=== PATIENT | female | born 1960 | race Caucasian/White ===

== ENCOUNTER 2021-12-14 19:13 | Inpatient (IN) | payer OTHER ==
[2021-12-14 19:39] VITALS: BMI 28.5
[2021-12-14] MEDS ORDERED: SODIUM CHLORIDE 2,123 ML IV ONE (20:26)
[2021-12-14] MEDS ORDERED: ACETAMINOPHEN 1000 MG/100 ML BAG IVPB ONE (20:27)
[2021-12-14] MEDS ORDERED: ACETAMINOPHEN INJECTION 100 ML IVPB ONE (20:42)
[2021-12-14 21:27] LABS: VENOUS BASE EXCESS -0.6 mmol/L (-2-2); VENOUS O2 SATURATION 94.8 % (70-80); VENOUS PCO2 36.1 mmHg (38-52); VENOUS PH 7.428 (7.310-7.410)
[2021-12-14 21:41] LABS: BASO % 0.1 % (0-2.0); EOS % 0.2 % (0-4.5); HEMATOCRIT 38.6 % (32.4-45.2); MCH 28.6 pg (25.7-33.7); MCHC 33.7 g/dl (32.0-36.0); MEAN CELL VOLUME 84.9 fl (80-96); MEAN PLT VOLUME 9.2 fl (7.5-11.1); MONO % 4.9 % (3.8-10.2); NEUT % 85.8 % (42.8-82.8); PLATELET COUNT 234 10^3/uL (134-434); RBC 4.55 M/mm3 (3.60-5.2); RDW 14.3 % (11.6-15.6); WHITE BLOOD COUNT 13.6 K/mm3 (4.0-10.0)
[2021-12-14 21:46] LABS: URINE APPEARANCE CLEAR; URINE BILIRUBIN NEGATIVE (NEGATIVE); URINE COLOR YELLOW; URINE GLUCOSE (UA) NEGATIVE (NEGATIVE); URINE KETONE NEGATIVE (NEGATIVE); URINE LEUK ESTERASE NEGATIVE (NEGATIVE); URINE NITRITE NEGATIVE (NEGATIVE); URINE PROTEIN NEGATIVE (NEGATIVE); URINE UROBILINOGEN 0.2 mg/dL (0.2-1.0)
[2021-12-14 22:16] LABS: LACTIC ACID 2.3 mmol/L (0.4-2.0)
[2021-12-14 22:21] LABS: INR 1.03 (0.83-1.09); PROTHROMBIN TIME (PATIENT) 11.8 SEC (9.7-13.0)
[2021-12-14 22:23] LABS: ACTIVATED PTT 27.3 SECONDS (25.2-36.5)
[2021-12-14 22:47] LABS: CHLORIDE 104 mmol/L (98-107); SODIUM 137 mmol/L (136-145)
[2021-12-14 22:49] LABS: ANION GAP 9 MMOL/L (8-16); BLOOD UREA NITROGEN 12.3 mg/dL (7-18); CALCIUM 8.9 mg/dL (8.5-10.1); CO2 25 mmol/L (21-32); GLUCOSE,RANDOM 139 mg/dL (74-106)
[2021-12-14 22:50] LABS: ALBUMIN 3.7 g/dl (3.4-5.0)
[2021-12-14 22:52] LABS: CREATININE 0.8 mg/dL (0.55-1.3)
[2021-12-14 22:53] LABS: SGOT/AST 31 U/L (15-37); SGPT/ALT 31 U/L (13-61)
[2021-12-14 22:54] LABS: BILIRUBIN,TOTAL 0.5 mg/dL (0.2-1); TOT PROT 7.5 g/dl (6.4-8.2)
[2021-12-14 22:55] LABS: ALK PHOS 94 U/L (45-117)
[2021-12-15 01:01] LABS: LACTIC ACID 2.4 mmol/L (0.4-2.0)
[2021-12-15] MEDS ORDERED: PIPERACILLIN/TAZOB 4.5 GM 4.5 GM in DEXTROSE 5%-WATER 100 ML IVPB ONE (03:06)
[2021-12-15] MEDS ORDERED: VANCOMYCIN 1,000 MG in DEXTROSE 5%-WATER - 250 ML IVPB ONE (03:06)
[2021-12-15] MEDS ORDERED: VANCOMYCIN/WATER FOR INJ (PEG) 1,000 MG/200 ML BAG IVPB ONE (03:13)
[2021-12-15] MEDS ORDERED: PIPERACILLIN/TAZOB 4.5 GM 4.5 GM/100 ML BAG IVPB ONE ×2 (03:13→17:34)
[2021-12-15] MEDS ORDERED: ACETAMINOPHEN 1000 MG/100 ML BAG IVPB ONE (05:06)
[2021-12-15] MEDS ORDERED: ACETAMINOPHEN 325 MG TABLET (FP) PO PRN (07:47)
[2021-12-15] MEDS ORDERED: SODIUM CHLORIDE 1,000 ML IV SCH (08:00)
[2021-12-15] MEDS ORDERED: VANCOMYCIN 1,000 MG in DEXTROSE 5%-WATER - 250 ML IVPB SCH (08:00)
[2021-12-15] MEDS ORDERED: PIPERACILLIN/TAZOB 3.375 GM 3.375 GM in DEXTROSE 5%-WATER - 50 ML IVPB SCH (10:00)
[2021-12-15] MEDS ORDERED: ENOXAPARIN NA (PORCINE) 40 MG/0.4 ML DISP.SYRIN SQ ONE (10:30)
[2021-12-15] MEDS ORDERED: PIPERACILLIN/TAZOB 3.375 GM 3.375 GM/50 ML BAG IVPB ONE (10:31)
[2021-12-15] MEDS: ENOXAPARIN NA (PORCINE) 40 MG/0.4 ML DISP.SYRIN SQ SCH (10:46)
[2021-12-15] MEDS: INSULIN SLIDING SCALE (NOVOLOG) 1 VIAL SQ SCH ×3 (10:47→23:24)
[2021-12-15] MEDS: PIPERACILLIN/TAZOB 4.5 GM 4.5 GM in DEXTROSE 5%-WATER 100 ML IVPB SCH (17:50)
[2021-12-15] MEDS ORDERED: PIPERACILLIN/TAZOB 4.5 GM 4.5 GM in DEXTROSE 5%-WATER 100 ML IVPB SCH (18:00)
[2021-12-15] MEDS ORDERED: VANCOMYCIN 500 MG in DEXTROSE 5%-WATER - 250 ML IVPB SCH (20:00)
[2021-12-15] MEDS ORDERED: VANCOMYCIN/WATER FOR INJ (PEG) 1,000 MG/200 ML BAG IVPB SCH (20:00)
[2021-12-16] MEDS ORDERED: PIPERACILLIN/TAZOB 4.5 GM 4.5 GM/100 ML BAG IVPB ONE ×2 (02:44→07:39)
[2021-12-16] MEDS: PIPERACILLIN/TAZOB 4.5 GM 4.5 GM in DEXTROSE 5%-WATER 100 ML IVPB SCH ×2 (03:08→09:25)
[2021-12-16] MEDS ORDERED: ACETAMINOPHEN 325 MG TABLET (FP) ONE (06:04)
[2021-12-16 07:25] LABS: BASO % 0.3 % (0-2.0); EOS % 0.8 % (0-4.5); HEMATOCRIT 32.7 % (32.4-45.2); HEMOGLOBIN 11.3 GM/dL (10.7-15.3); LYMPH % 22.5 % (8-40); MCH 29.2 pg (25.7-33.7); MCHC 34.5 g/dl (32.0-36.0); MEAN CELL VOLUME 84.8 fl (80-96); NEUT % 68.4 % (42.8-82.8); PLATELET COUNT 204 10^3/uL (134-434); RBC 3.86 M/mm3 (3.60-5.2); RDW 14.2 % (11.6-15.6); WHITE BLOOD COUNT 9.1 K/mm3 (4.0-10.0)
[2021-12-16 07:34] LABS: INR 1.11 (0.83-1.09); PROTHROMBIN TIME (PATIENT) 12.8 SEC (9.7-13.0)
[2021-12-16 07:35] LABS: ACTIVATED PTT 27.4 SECONDS (25.2-36.5)
[2021-12-16] MEDS ORDERED: ENOXAPARIN NA (PORCINE) 40 MG/0.4 ML DISP.SYRIN SQ ONE (07:40)
[2021-12-16 07:46] LABS: CALCIUM 8.7 mg/dL (8.5-10.1)
[2021-12-16 07:47] LABS: ALBUMIN 3.5 g/dl (3.4-5.0); BLOOD UREA NITROGEN 10.7 mg/dL (7-18)
[2021-12-16 07:49] LABS: CREATININE 0.8 mg/dL (0.55-1.3); PHOSPHOROUS 3.5 mg/dL (2.5-4.9)
[2021-12-16 07:51] LABS: BILIRUBIN,TOTAL 0.6 mg/dL (0.2-1)
[2021-12-16] MEDS: INSULIN SLIDING SCALE (NOVOLOG) 1 VIAL SQ SCH ×4 (07:53→22:16)
[2021-12-16] MEDS ORDERED: VANCOMYCIN 1,000 MG in DEXTROSE 5%-WATER - 250 ML IVPB SCH (08:00)
[2021-12-16] MEDS: ENOXAPARIN NA (PORCINE) 40 MG/0.4 ML DISP.SYRIN SQ SCH (09:24)
[2021-12-16] MEDS ORDERED: PIPERACILLIN/TAZOB 3.375 GM 3.375 GM in DEXTROSE 5%-WATER - 50 ML IVPB SCH (13:45)
[2021-12-16] MEDS: PIPERACILLIN/TAZOB 3.375 GM 3.375 GM in DEXTROSE 5%-WATER - 50 ML IVPB SCH (16:52)
[2021-12-16] MEDS ORDERED: PIPERACILLIN/TAZOB 3.375 GM 3.375 GM/50 ML BAG IVPB ONE (16:55)
[2021-12-17] MEDS: PIPERACILLIN/TAZOB 3.375 GM 3.375 GM in DEXTROSE 5%-WATER - 50 ML IVPB SCH ×3 (02:23→18:13)
[2021-12-17] MEDS: INSULIN SLIDING SCALE (NOVOLOG) 1 VIAL SQ SCH ×4 (06:05→21:46)
[2021-12-17] MEDS: ENOXAPARIN NA (PORCINE) 40 MG/0.4 ML DISP.SYRIN SQ SCH (09:42)
[2021-12-17] MEDS: LISINOPRIL 10 MG TABLET PO SCH ×2 (10:50→21:47)
[2021-12-18] MEDS ORDERED: PIPERACILLIN/TAZOBACTAM 3.375 GM VIAL IVPB ONE (01:38)
[2021-12-18] MEDS: PIPERACILLIN/TAZOB 3.375 GM 3.375 GM in DEXTROSE 5%-WATER - 50 ML IVPB SCH (02:10)
[2021-12-18] MEDS: INSULIN SLIDING SCALE (NOVOLOG) 1 VIAL SQ SCH ×4 (06:23→21:40)
[2021-12-18 09:06] LABS: BASO % 0.4 % (0-2.0); EOS % 2.7 % (0-4.5); HEMATOCRIT 38.2 % (32.4-45.2); HEMOGLOBIN 12.6 GM/dL (10.7-15.3); LYMPH % 41.6 % (8-40); MCHC 32.8 g/dl (32.0-36.0); MEAN CELL VOLUME 85.1 fl (80-96); MEAN PLT VOLUME 8.8 fl (7.5-11.1); MONO % 11.8 % (3.8-10.2); NEUT % 43.5 % (42.8-82.8); PLATELET COUNT 268 10^3/uL (134-434); RBC 4.49 M/mm3 (3.60-5.2); RDW 14.6 % (11.6-15.6); WHITE BLOOD COUNT 6.8 K/mm3 (4.0-10.0)
[2021-12-18 09:25] LABS: BLOOD UREA NITROGEN 17.6 mg/dL (7-18); CALCIUM 9.9 mg/dL (8.5-10.1)
[2021-12-18 09:29] LABS: CREATININE 0.9 mg/dL (0.55-1.3)
[2021-12-18] MEDS ORDERED: CEFTRIAXONE 1 GM in DEXTROSE 5%-WATER - 50 ML IVPB SCH (10:00)
[2021-12-18] MEDS: LISINOPRIL 10 MG TABLET PO SCH ×2 (10:07→21:34)
[2021-12-18] MEDS: ENOXAPARIN NA (PORCINE) 40 MG/0.4 ML DISP.SYRIN SQ SCH (10:07)
[2021-12-18] MEDS ORDERED: diphenhydrAMINE HCL 25 MG CAPSULE (FP) PO ONE (16:59)
[2021-12-18] MEDS ORDERED: PIPERACILLIN/TAZOB 3.375 GM 3.375 GM in DEXTROSE 5%-WATER - 50 ML IVPB SCH (18:00)
[2021-12-18] MEDS: ATORVASTATIN CA 40 MG TABLET (FP) PO SCH (21:34)
[2021-12-19] MEDS: INSULIN SLIDING SCALE (NOVOLOG) 1 VIAL SQ SCH ×4 (06:36→21:35)
[2021-12-19] MEDS ORDERED: diphenhydrAMINE HCL 25 MG CAPSULE (FP) PO PRN (07:42)
[2021-12-19 08:44] LABS: CALCIUM 9.8 mg/dL (8.5-10.1)
[2021-12-19 08:45] LABS: BLOOD UREA NITROGEN 19.9 mg/dL (7-18)
[2021-12-19 08:47] LABS: CREATININE 0.9 mg/dL (0.55-1.3)
[2021-12-19 09:01] LABS: BASO % 0.4 % (0-2.0); HEMATOCRIT 38.9 % (32.4-45.2); HEMOGLOBIN 12.8 GM/dL (10.7-15.3); LYMPH % 42.2 % (8-40); MCH 28.1 pg (25.7-33.7); MCHC 32.8 g/dl (32.0-36.0); MEAN CELL VOLUME 85.6 fl (80-96); MEAN PLT VOLUME 9.2 fl (7.5-11.1); MONO % 10.4 % (3.8-10.2); PLATELET COUNT 288 10^3/uL (134-434); RBC 4.55 M/mm3 (3.60-5.2); RDW 14.2 % (11.6-15.6); WHITE BLOOD COUNT 6.2 K/mm3 (4.0-10.0)
[2021-12-19] MEDS ORDERED: PIPERACILLIN/TAZOB 3.375 GM 3.375 GM in DEXTROSE 5%-WATER - 50 ML IVPB SCH (10:00)
[2021-12-19] MEDS: AZTREONAM 1 GM in DEXTROSE 5%-WATER - 50 ML IVPB SCH ×2 (10:08→17:24)
[2021-12-19] MEDS: ENOXAPARIN NA (PORCINE) 40 MG/0.4 ML DISP.SYRIN SQ SCH (10:08)
[2021-12-19] MEDS: ASPIRIN COATED 81 MG TABLET.EC PO SCH (10:09)
[2021-12-19] MEDS: LISINOPRIL 10 MG TABLET PO SCH ×2 (10:09→21:30)
[2021-12-19] MEDS: ATORVASTATIN CA 40 MG TABLET (FP) PO SCH (21:30)
[2021-12-19] MEDS ORDERED: INSULIN (NOVOLOG) ASPART 100 UNITS/ML 10ML VIAL ONE (21:37)
[2021-12-20] MEDS: AZTREONAM 1 GM in DEXTROSE 5%-WATER - 50 ML IVPB SCH ×3 (02:07→17:51)
[2021-12-20] MEDS ORDERED: INSULIN (NOVOLOG) ASPART 100 UNITS/ML 10ML VIAL ONE ×2 (06:36→16:25)
[2021-12-20] MEDS: INSULIN SLIDING SCALE (NOVOLOG) 1 VIAL SQ SCH ×4 (06:41→22:43)
[2021-12-20] MEDS: ASPIRIN COATED 81 MG TABLET.EC PO SCH (09:35)
[2021-12-20] MEDS: LISINOPRIL 10 MG TABLET PO SCH ×2 (09:35→22:43)
[2021-12-20 12:24] LABS: BASO % 0.6 % (0-2.0); HEMATOCRIT 36.6 % (32.4-45.2); HEMOGLOBIN 12.4 GM/dL (10.7-15.3); LYMPH % 37.7 % (8-40); MCH 28.8 pg (25.7-33.7); MCHC 33.7 g/dl (32.0-36.0); MEAN CELL VOLUME 85.5 fl (80-96); MEAN PLT VOLUME 8.7 fl (7.5-11.1); MONO % 7.7 % (3.8-10.2); PLATELET COUNT 276 10^3/uL (134-434); RBC 4.28 M/mm3 (3.60-5.2); RDW 14.2 % (11.6-15.6); WHITE BLOOD COUNT 5.4 K/mm3 (4.0-10.0)
[2021-12-20 14:30] LABS: BLOOD UREA NITROGEN 17.4 mg/dL (7-18); CALCIUM 9.2 mg/dL (8.5-10.1)
[2021-12-20 14:34] LABS: CREATININE 0.8 mg/dL (0.55-1.3)
[2021-12-20] MEDS: ATORVASTATIN CA 40 MG TABLET (FP) PO SCH (22:43)
[2021-12-21] MEDS: AZTREONAM 1 GM in DEXTROSE 5%-WATER - 50 ML IVPB SCH (02:41)
[2021-12-21] MEDS: INSULIN SLIDING SCALE (NOVOLOG) 1 VIAL SQ SCH ×2 (06:51→13:23)
[2021-12-21] MEDS ORDERED: ENOXAPARIN NA (PORCINE) 40 MG/0.4 ML DISP.SYRIN SQ SCH (10:00)
[2021-12-21] MEDS ORDERED: SULFAMETHOXAZOLE/TRIMETHOPRIM 800MG/160MG D.S. TABLET PO SCH (10:00)
[2021-12-21] MEDS: LISINOPRIL 10 MG TABLET PO SCH (10:16)
[2021-12-21] MEDS: ASPIRIN COATED 81 MG TABLET.EC PO SCH (10:16)
[2021-12-21 10:18] LABS: BASO % 0.5 % (0-2.0); EOS % 2.6 % (0-4.5); HEMOGLOBIN 12.3 GM/dL (10.7-15.3); LYMPH % 39.2 % (8-40); MCH 29.3 pg (25.7-33.7); MCHC 34.3 g/dl (32.0-36.0); MEAN CELL VOLUME 85.3 fl (80-96); MEAN PLT VOLUME 8.5 fl (7.5-11.1); MONO % 7.5 % (3.8-10.2); NEUT % 50.2 % (42.8-82.8); PLATELET COUNT 289 10^3/uL (134-434); RBC 4.22 M/mm3 (3.60-5.2); RDW 14.3 % (11.6-15.6); WHITE BLOOD COUNT 6.5 K/mm3 (4.0-10.0)
[2021-12-21 11:17] LABS: CALCIUM 9.6 mg/dL (8.5-10.1)
[2021-12-21 11:18] LABS: BLOOD UREA NITROGEN 21.4 mg/dL (7-18)
[2021-12-21 11:22] LABS: CREATININE 0.8 mg/dL (0.55-1.3)
[2021-12-21 14:17] VITALS: BP 128/63; PULSE 78; RESP 18; TEMP 99
== END 2021-12-21 16:33 | disposition home or self-care (01) | DRG 720 ==
LOC: JER 19:13 → JERBED 12-15 03:08 → J8W 12-16 18:09
PROVIDERS: ADMIT Internal Medicine; ATTEND Internal Medicine
DX: A41.51 Sepsis due to Escherichia coli [E. coli] (principal); E87.2 Acidosis; J84.10 Pulmonary fibrosis, unspecified; E11.9 Type 2 diabetes mellitus without complications; E78.5 Hyperlipidemia, unspecified; I10 Essential (primary) hypertension; N39.0 Urinary tract infection, site not specified; D72.829 Elevated white blood cell count, unspecified
CPT/HCPCS: 36415; 70450-TC; 71045-TC-FY; 71275-TC; 74176-TC; 80048; 80053; 80061; 81003; 82550; 82553; 82803; 82962; 83605; 83735; 84100; 84443; 84484; 85025; 85379; 85610; 85730; 86480; 86850; 86900; 86901; 87040; 87086; 87186; 87899; 93005; 93010; 93970-TC; 99285-25; C9803-CS; Q9967; U0003; U0005

== ENCOUNTER 2022-06-29 09:11 | Day surgery (SDC) | payer OTHER ==
[2022-06-26 10:16] VITALS: BMI 27.4
[2022-06-29] MEDS ORDERED: ROPIVACAINE HCL 0.5% 30ML VIAL ONE (10:34)
[2022-06-29] MEDS ORDERED: DEXAMETHASONE SOD PHOSPHATE/PF 10 MG/ML SDV ONE (10:34)
[2022-06-29] MEDS ORDERED: MIDAZOLAM HCL 2 MG/2 ML SINGLE DOSE VIAL ONE (10:34)
[2022-06-29] MEDS ORDERED: ceFAZolin SODIUM 1 GM VIAL ONE (12:12)
[2022-06-29] MEDS ORDERED: ONDANSETRON 4 MG/2 ML VIAL ONE (12:12)
[2022-06-29] MEDS ORDERED: DEXAMETHASONE SOD PHOSPHATE 4 MG/1 ML VIAL ONE (12:12)
[2022-06-29] MEDS ORDERED: PROPOFOL 40 ML ONE (12:17)
[2022-06-29 14:36] VITALS: TEMP 97.8
[2022-06-29 15:12] VITALS: BP 136/70; PULSE 86; RESP 18
== END 2022-06-29 16:10 | disposition home or self-care (01) ==
LOC: FASU 09:11
PROVIDERS: ATTEND Orthopaedic Surgery
PROC: 0PB94ZZ Excision of Right Clavicle, Percutaneous Endoscopic Approach (ICD-10-PCS; 2022-06-29)
PROC: 0LS34ZZ Reposition Right Upper Arm Tendon, Percutaneous Endoscopic Approach (ICD-10-PCS; 2022-06-29)
PROC: 0LS34ZZ Reposition Right Upper Arm Tendon, Percutaneous Endoscopic Approach (ICD-10-PCS; principal; 2022-06-29 12:21)
PROC: 0RNJ4ZZ Release Right Shoulder Joint, Percutaneous Endoscopic Approach (ICD-10-PCS; 2022-06-29 12:21)
DX: S46.011D Strain of muscle(s) and tendon(s) of the rotator cuff of right shoulder, subsequent encounter (principal); M75.21 Bicipital tendinitis, right shoulder; M75.51 Bursitis of right shoulder; M65.811 Other synovitis and tenosynovitis, right shoulder; S43.431D Superior glenoid labrum lesion of right shoulder, subsequent encounter; M19.011 Primary osteoarthritis, right shoulder; M75.01 Adhesive capsulitis of right shoulder; X58.XXXD Exposure to other specified factors, subsequent encounter
CPT/HCPCS: 82962; 88304-TC; C1713